=== PATIENT | female | born 1990 | race Caucasian/White ===

== ENCOUNTER 2021-09-16 13:25 | Outpatient (CLI) | payer OTHER, SELFPAY ==
--- NOTE | 2021-09-16 13:43 | XR_ITS ---
WS: [id number] Chest 2 views, 09/16/2021 Clinical Data: ABNORMALITIES OFBREATHING Comparison: None. Findings: No nodules, masses or effusions are seen. The heart is normal. The pulmonary vascularity is not increased. No pneumonia or pneumothorax is seen. XR/XR chest 2V* [id number] Impression: Negative chest.
== END 2021-09-16 13:26 | disposition home or self-care (01) ==
LOC: RAD 13:27
PROVIDERS: PCP Nurse Practitioner; Visit Provider Nurse Practitioner
DX: R06.89 Other abnormalities of breathing (principal)
CPT/HCPCS: 71046